=== PATIENT | female | born 1985 | race Caucasian/White ===

== ENCOUNTER 2021-02-04 14:16 | Outpatient (CLI) | payer MEDICAID ==
[~2021-02-04] VITALS: Ht 167.6 cm; Wt 68.2 kg
[2021-02-04 14:58] VITALS: BP 105/61
[2021-02-04 16:43] LABS: MICROSCOPIC INDICATED
[2021-02-04 16:50] LABS: AMPHETAMINE SCREEN, URINE Negative (Negative); BARBITURATE SCREEN, URINE Negative (Negative); BENZODIAZEPINE SCREEN, URINE Negative (Negative); CANNABINOID SCREEN, URINE Positive (Negative); COCAINE SCREEN, URINE Negative (Negative); METHADONE SCREEN, URINE Positive (Negative); OPIATE SCREEN, URINE Negative (Negative)
[2021-02-04] MEDS ORDERED: PREN1TAB60 PO (17:26)
[2021-02-04] MEDS ORDERED: METH10OR PO (17:30)
== END 2021-02-04 17:42 | disposition home or self-care (01) ==
LOC: LDOP 14:16
PROVIDERS: ATTEND Obstetrics & Gynecology
DX: Z34.93 Encounter for supervision of normal pregnancy, unspecified, third trimester (principal); Z3A.32 32 weeks gestation of pregnancy
CPT/HCPCS: 59025; 76819; 80307; 81001; 87086

== ENCOUNTER 2021-03-07 16:13 | Outpatient (CLI) | payer MEDICAID ==
[~2021-03-07] VITALS: Ht 167.6 cm; Wt 68.6 kg
[~2021-03-07 16:13] MED LIST: METH10OR PO; PREN1TAB60 PO
== END 2021-03-07 19:45 | disposition home or self-care (01) ==
LOC: LDOP 16:13
PROVIDERS: ATTEND Obstetrics & Gynecology
DX: O69.81X0 Labor and delivery complicated by cord around neck, without compression, not applicable or unspecified (principal); O36.8130 Decreased fetal movements, third trimester, not applicable or unspecified; Z3A.36 36 weeks gestation of pregnancy
CPT/HCPCS: 59025; 76819

== ENCOUNTER 2021-03-14 02:46 | Inpatient (IN) | payer MEDICAID ==
[~2021-03-14] VITALS: Ht 160 cm; Wt 69.0 kg
[2021-03-14] MEDS ORDERED: NEWBORN KIT ONE (03:23)
[2021-03-14] MEDS ORDERED: METOCLOPRAMIDE 5 MG/ML, 2ML ONE (03:24)
[2021-03-14] MEDS ORDERED: SODIUM CITRATE/CITRIC ACID 15 ML UDC ONE (03:24)
[2021-03-14] MEDS ORDERED: OXYTOCIN 30U/ 0.9% NaCL 500ML 500 ML ONE (03:24)
[2021-03-14] MEDS ORDERED: PLEASE ENTER HEIGHT AND WEIGHT MC SCH (03:30)
[2021-03-14] MEDS: LACTATED RINGERS 1,000 ML IV SCH ×5 (03:30→22:55)
[2021-03-14] MEDS ORDERED: METOCLOPRAMIDE 5 MG/ML, 2ML IV ONE (03:30)
[2021-03-14] MEDS ORDERED: LACTATED RINGERS 1,000 ML IVBOLUS ONE (03:30)
[2021-03-14] MEDS ORDERED: ONDANSETRON 2MG/ML, 2ML IVPush ONE (03:30)
[2021-03-14] MEDS ORDERED: SODIUM CITRATE/CITRIC ACID 30 ML UDC PO ONE (03:30)
[2021-03-14 03:48] LABS: BASOPHILS % (AUTO) 0 % (0-1); EOSINOPHILS % (AUTO) 1 % (1-7); LYMPHOCYTES % (AUTO) 23 % (22-44); MEAN CORPUSCULAR HEMOGLOBIN 32.5 pg (27.0-34.8); MEAN CORPUSCULAR HGB CONC 35.2 g/dL (32.4-35.8); MEAN PLATELET VOLUME 10.2 fL (7.4-10.4); MONOCYTES % (AUTO) 7 % (2-9); NEUTROPHILS % (AUTO) 69 % (42-75); PLATELET COUNT 176 x10^3/uL (130-400); RED BLOOD COUNT 3.68 x10^6/uL (3.82-5.3); RED CELL DISTRIBUTION WIDTH 12.9 % (9.6-15.2)
[2021-03-14] MEDS ORDERED: DEXAMETHASONE 4 MG/ML, 1ML ONE (03:53)
[2021-03-14] MEDS ORDERED: KETOROLAC 30 MG/1 ML ONE (03:53)
[2021-03-14] MEDS ORDERED: PHENYLEPHRINE 10 MG/ML ONE (03:53)
[2021-03-14] MEDS ORDERED: ONDANSETRON 2MG/ML, 2ML ONE (03:53)
[2021-03-14] MEDS ORDERED: CEFAZOLIN 1,000 MG ONE (03:53)
[2021-03-14] MEDS ORDERED: OXYTOCIN 10 UNITS/ML, 1ML ONE (03:53)
[2021-03-14] MEDS ORDERED: EPHEDRINE 50 MG/ML, 1ML ONE (03:53)
[2021-03-14] MEDS ORDERED: FENTANYL PF 100 MCG/2ML ONE (03:54)
[2021-03-14] MEDS ORDERED: PROMETHAZINE 25 MG/ML, 1ML IV PRN (04:00)
[2021-03-14] MEDS ORDERED: ONDANSETRON 2MG/ML, 2ML IVPush PRN (04:00)
[2021-03-14] MEDS ORDERED: OXYcodone 5 MG/5 ML ORAL.SOL UDC PO PRN (04:00)
[2021-03-14] MEDS ORDERED: hydrALAzine 20 MG/ML, 1ML IV PRN (04:00)
[2021-03-14] MEDS ORDERED: HYDROcodone/APAP 7.5-325MG/15ML UDC PO PRN (04:00)
[2021-03-14] MEDS ORDERED: MEPERIDINE/PF 25MG/0.5ML IVPush PRN (04:00)
[2021-03-14] MEDS ORDERED: EPHEDRINE 50 MG/ML, 1ML IVPush PRN (04:00)
[2021-03-14] MEDS ORDERED: hydrALAzine 20 MG/ML, 1ML IVPush PRN (04:00)
[2021-03-14] MEDS ORDERED: HYDROmorphone 2 MG/ML, 1ML IVPush PRN (04:00)
[2021-03-14] MEDS ORDERED: FENTANYL PF 100 MCG/2ML IV PRN (04:00)
[2021-03-14] MEDS ORDERED: MIDAZOLAM 1 MG/ML, 2ML IV PRN (04:00)
[2021-03-14] MEDS ORDERED: LABETALOL 5MG/ML, 20ML IV PRN (04:00)
[2021-03-14 04:01] LABS: AMPHETAMINE SCREEN, URINE Negative (Negative); BARBITURATE SCREEN, URINE Negative (Negative); BENZODIAZEPINE SCREEN, URINE Negative (Negative); CANNABINOID SCREEN, URINE Positive (Negative); COCAINE SCREEN, URINE Negative (Negative); METHADONE SCREEN, URINE Positive (Negative); OPIATE SCREEN, URINE Negative (Negative)
[2021-03-14] MEDS ORDERED: HYDROmorphone 2 MG/ML, 1ML ONE (05:03)
[2021-03-14] MEDS ORDERED: MISOPROSTOL 200 MCG TABLET PR PRN (06:00)
[2021-03-14] MEDS ORDERED: SIMETHICONE 80 MG CHEW TAB PO PRN (06:00)
[2021-03-14] MEDS ORDERED: ONDANSETRON 2MG/ML, 2ML IV PRN (06:00)
[2021-03-14] MEDS ORDERED: METHYLERGONOVINE 0.2 MG/ML IM PRN (06:00)
[2021-03-14] MEDS ORDERED: GLYCERIN ADULT SUPP PR PRN (06:00)
[2021-03-14] MEDS ORDERED: MORPHINE SULFATE 4 MG/ML, 1ML IVPush PRN (06:00)
[2021-03-14] MEDS ORDERED: KETOROLAC 30 MG/1 ML IM SCH (06:00)
[2021-03-14] MEDS: OXYTOCIN 30U/ 0.9% NaCL 500ML 500 ML IV SCH ×2 (06:15→22:55)
[2021-03-14 07:13] VITALS: BP 132/86
[2021-03-14] MEDS: METHADONE 40 MG TABLET.SOL PO SCH (08:03)
[2021-03-14] MEDS: PRENATAL VIT/IRON/FA 1 EACH TABLET PO SCH (08:04)
[2021-03-14] MEDS: OXYcodone/APAP 5/325MG TABLET PO PRN ×4 (08:09→20:55)
[2021-03-14 11:58] VITALS: BP 141/82
[2021-03-14 12:35] LABS: BASOPHILS % (AUTO) 1 % (0-1); EOSINOPHILS % (AUTO) 0 % (1-7); LYMPHOCYTES % (AUTO) 10 % (22-44); MEAN CORPUSCULAR HGB CONC 34.2 g/dL (32.4-35.8); MEAN PLATELET VOLUME 10.4 fL (7.4-10.4); MONOCYTES % (AUTO) 5 % (2-9); NEUTROPHILS % (AUTO) 85 % (42-75); PLATELET COUNT 182 x10^3/uL (130-400); RED BLOOD COUNT 3.66 x10^6/uL (3.82-5.3); RED CELL DISTRIBUTION WIDTH 12.8 % (9.6-15.2)
[2021-03-14 16:30] VITALS: BP 122/72
[2021-03-14] MEDS: IBUPROFEN 800 MG TABLET PO PRN (17:57)
[2021-03-14 20:40] VITALS: BP 133/76
[2021-03-14] MEDS: DOCUSATE 100 MG CAPSULE PO PRN (20:54)
[2021-03-15] MEDS: OXYcodone/APAP 5/325MG TABLET PO PRN ×5 (01:06→22:50)
[2021-03-15 01:40] VITALS: BP 137/80
[2021-03-15] MEDS: OXYTOCIN 30U/ 0.9% NaCL 500ML 500 ML IV SCH (01:49)
[2021-03-15] MEDS: LACTATED RINGERS 1,000 ML IV SCH ×3 (01:49→06:00)
[2021-03-15] MEDS: IBUPROFEN 800 MG TABLET PO PRN ×2 (04:54→17:07)
[2021-03-15 04:56] VITALS: BP 136/81
[2021-03-15] MEDS: DOCUSATE 100 MG CAPSULE PO PRN ×2 (07:30→22:49)
[2021-03-15] MEDS: METHADONE 40 MG TABLET.SOL PO SCH (07:30)
[2021-03-15] MEDS: PRENATAL VIT/IRON/FA 1 EACH TABLET PO SCH (07:30)
[2021-03-15 08:02] VITALS: BP 135/82
[2021-03-15 18:27] VITALS: BP 147/80
[2021-03-16] MEDS: IBUPROFEN 800 MG TABLET PO PRN ×3 (04:13→19:16)
[2021-03-16] MEDS: OXYcodone/APAP 5/325MG TABLET PO PRN ×4 (04:13→19:12)
[2021-03-16] MEDS: METHADONE 40 MG TABLET.SOL PO SCH (07:21)
[2021-03-16] MEDS: DOCUSATE 100 MG CAPSULE PO PRN ×2 (07:21→19:12)
[2021-03-16] MEDS: PRENATAL VIT/IRON/FA 1 EACH TABLET PO SCH (07:21)
[2021-03-16 14:39] VITALS: BP 115/82
[2021-03-16] MEDS ORDERED: DIPH,PERTUSS(ACELL),TET VAC/PF NC IM-VACC ONE (16:00)
[2021-03-17] MEDS: OXYcodone/APAP 5/325MG TABLET PO PRN ×3 (00:54→10:07)
[2021-03-17 01:47] VITALS: BP 135/79
[2021-03-17] MEDS: IBUPROFEN 800 MG TABLET PO PRN (05:20)
[2021-03-17] MEDS: METHADONE 40 MG TABLET.SOL PO SCH (07:28)
[2021-03-17] MEDS: PRENATAL VIT/IRON/FA 1 EACH TABLET PO SCH (07:28)
[2021-03-17] MEDS: DOCUSATE 100 MG CAPSULE PO PRN (07:29)
[2021-03-17] MEDS ORDERED: DOCU-131 PO (07:29)
[2021-03-17] MEDS ORDERED: OXYC1TAB12 PO (07:29)
[2021-03-17] MEDS ORDERED: IBUP-1223 PO (07:29)
[2021-03-17 11:55] VITALS: BP 131/86
== END 2021-03-17 12:08 | disposition home or self-care (01) | DRG 787 ==
LOC: LDOP 02:46 → LDIP 03:11 → 2NW 07:37
PROVIDERS: ADMIT Obstetrics & Gynecology; ATTEND Obstetrics & Gynecology
PROC: 10D00Z1 Extraction of Products of Conception, Low, Open Approach (ICD-10-PCS; principal; 2021-03-14)
DX: O69.81X0 Labor and delivery complicated by cord around neck, without compression, not applicable or unspecified (principal); O98.32 Other infections with a predominantly sexual mode of transmission complicating childbirth; A60.09 Herpesviral infection of other urogenital tract; Z20.822 Contact with and (suspected) exposure to COVID-19; Z37.0 Single live birth; Z3A.37 37 weeks gestation of pregnancy
CPT/HCPCS: 36415; 80307; 82962; 85025; 86592; 86850; 86900; 87635; 90715; G0378; J0690; J1100; J1170; J1885; J2405; J3010; J2270; J2370; J2590; J2765; J7120